=== PATIENT | female | born 1975 | race African-American/Black ===

== ENCOUNTER 2017-12-16 02:55 | Emergency (ER) | payer BC ==
[~2017-12-16] VITALS: Ht 165.1 cm; Wt 72.6 kg
[~2017-12-16 02:55] MED LIST: ASPIR 8181 MG PO; HYDROXYCHLOROQ200 M1 PO; NAPROSYN500 MG PO; PREDNISONE 5 MG5 M1 PO
[2017-12-16 03:19] LABS: ABSOLUTE NEUTROPHILS 6.5 thou/uL (1.4-8.2); BASOPHILS 0.4 % (0.0-2.0); EOSINOPHILS 3.8 % (0.0-3.0); HEMATOCRIT 37.1 % (37.0-47.0); HEMOGLOBIN 12.4 gm/dL (12.0-15.0); LYMPHOCYTES 2.7 % (24.0-44.0); MCH 28.3 pg (26.0-34.0); MCHC 33.4 g/dL (28.0-37.0); MCV 84.6 fL (80.0-100.0); MONOCYTES 9.6 % (1.0-8.0); PLATELET COUNT 136 thou/uL (150-400); POLYS 83.5 % (36.0-66.0); RBC 4.39 mil/uL (4.20-5.00); RDW 13.7 % (10.5-14.5); WBC 7.8 thou/uL (4.0-11.0)
[2017-12-16 03:29] LABS: CALCIUM 9.1 mg/dL (8.5-10.1); CREATININE 1.1 mg/dL (0.6-1.0); POTASSIUM 3.9 mmol/L (3.5-5.1)
[2017-12-16 03:35] LABS: ALBUMIN 3.4 g/dL (3.4-5.0); TOTAL BILIRUBIN 0.7 mg/dL (<0.1-1.0); TOTAL PROTEIN 8.2 g/dL (6.4-8.2)
[2017-12-16] MEDS ORDERED: PROTONIX40 MG PO (04:36)
[2017-12-16 04:45] VITALS: BP 129/85
== END 2017-12-16 04:47 | disposition home or self-care (01) ==
LOC: ER 02:55
PROVIDERS: Emergency Medicine
DX: R10.13 Epigastric pain (principal); K44.9 Diaphragmatic hernia without obstruction or gangrene; M32.9 Systemic lupus erythematosus, unspecified; Z88.2 Allergy status to sulfonamides

== ENCOUNTER → 2019-09-08 | Outpatient (CLI) | payer BC ==
[~2019-09-08] MED LIST changes: +PROTONIX40 MG PO
== END ==
LOC: HYPER 09:57
PROVIDERS: ATTEND Emergency Medicine
DX: L97.822 Non-pressure chronic ulcer of other part of left lower leg with fat layer exposed (principal); L97.221 Non-pressure chronic ulcer of left calf limited to breakdown of skin; I87.2 Venous insufficiency (chronic) (peripheral); I73.00 Raynaud's syndrome without gangrene; L84 Corns and callosities; R60.0 Localized edema; Z79.82 Long term (current) use of aspirin

== ENCOUNTER → 2019-09-08 | Outpatient (CLI) | payer BC | LOC: SJCVCIMAG 11:27 | PROVIDERS: ATTEND Emergency Medicine | DX: I73.9 Peripheral vascular disease, unspecified (principal) ==

== ENCOUNTER → 2019-09-15 | Outpatient (CLI) | payer BC | LOC: HYPER 10:16 | PROVIDERS: ATTEND Emergency Medicine | DX: L97.822 Non-pressure chronic ulcer of other part of left lower leg with fat layer exposed (principal); I87.2 Venous insufficiency (chronic) (peripheral); R60.0 Localized edema; I73.00 Raynaud's syndrome without gangrene; L84 Corns and callosities; M32.9 Systemic lupus erythematosus, unspecified; Z79.82 Long term (current) use of aspirin ==

== ENCOUNTER → 2019-09-29 | Outpatient (CLI) | payer BC | LOC: HYPER 06:33 | PROVIDERS: ATTEND Emergency Medicine | DX: L97.822 Non-pressure chronic ulcer of other part of left lower leg with fat layer exposed (principal); R60.0 Localized edema; I87.2 Venous insufficiency (chronic) (peripheral); I73.00 Raynaud's syndrome without gangrene; M32.9 Systemic lupus erythematosus, unspecified ==

== ENCOUNTER → 2019-10-14 | Outpatient (CLI) | payer BC | LOC: HYPER 08:05 | PROVIDERS: ATTEND Emergency Medicine | DX: L02.416 Cutaneous abscess of left lower limb (principal); L97.822 Non-pressure chronic ulcer of other part of left lower leg with fat layer exposed; I87.2 Venous insufficiency (chronic) (peripheral); L84 Corns and callosities; R60.0 Localized edema; I73.00 Raynaud's syndrome without gangrene; Z79.82 Long term (current) use of aspirin ==

== ENCOUNTER → 2019-10-21 | Outpatient (CLI) | payer BC | LOC: HYPER 08:16 | PROVIDERS: ATTEND Emergency Medicine | DX: L97.822 Non-pressure chronic ulcer of other part of left lower leg with fat layer exposed (principal); I87.2 Venous insufficiency (chronic) (peripheral); R60.0 Localized edema; I73.00 Raynaud's syndrome without gangrene; M32.9 Systemic lupus erythematosus, unspecified ==

== ENCOUNTER → 2019-10-29 | Outpatient (CLI) | payer BC | LOC: HYPER 13:04 | PROVIDERS: ATTEND Emergency Medicine | DX: L97.822 Non-pressure chronic ulcer of other part of left lower leg with fat layer exposed (principal); I87.2 Venous insufficiency (chronic) (peripheral); R60.0 Localized edema; I73.00 Raynaud's syndrome without gangrene; M32.9 Systemic lupus erythematosus, unspecified ==

== ENCOUNTER → 2019-11-19 | Outpatient (CLI) | payer BC | LOC: HYPER 11:11 | PROVIDERS: ATTEND Emergency Medicine | DX: L97.822 Non-pressure chronic ulcer of other part of left lower leg with fat layer exposed (principal); R60.0 Localized edema; I87.2 Venous insufficiency (chronic) (peripheral); I73.00 Raynaud's syndrome without gangrene; M32.9 Systemic lupus erythematosus, unspecified ==

== ENCOUNTER → 2019-12-10 | Outpatient (CLI) | payer BC | LOC: HYPER 13:20 | PROVIDERS: ATTEND Emergency Medicine | DX: L97.822 Non-pressure chronic ulcer of other part of left lower leg with fat layer exposed (principal); I87.2 Venous insufficiency (chronic) (peripheral); L84 Corns and callosities; R60.0 Localized edema; I73.00 Raynaud's syndrome without gangrene; Z79.82 Long term (current) use of aspirin ==